=== PATIENT | female | born 1990 | race Two or more races ===

== ENCOUNTER 2018-05-14 07:13 | Emergency (ER) | payer MEDICAID ==
[~2018-05-14] VITALS: Ht 152.4 cm; Wt 70.3 kg
[2018-05-14] MEDS ORDERED: insulin NPH (07:30)
[2018-05-14] MEDS ORDERED: HUMULIN R100 UNIT/1 SUBQ (07:30)
[2018-05-14 08:27] VITALS: BP 115/85
[2018-05-14 08:45] LABS: ANION GAP 8 mmol/L (5-15); BLOOD UREA NITROGEN 15 mg/dL (7-18); CALCIUM 8.7 MG/DL (8.5-10.1); CARBON DIOXIDE 28 MMOL/L (21-32); CHLORIDE 102 MMOL/L (98-107); CREATININE 0.7 MG/DL (0.55-1.30); POTASSIUM 3.2 MMOL/L (3.5-5.1); SODIUM 138 MMOL/L (136-145)
[2018-05-14 08:48] LABS: BASOPHILS % (AUTO) 1.2 % (0.0-2.0); EOSINOPHILS % (AUTO) 1.9 % (0.0-3.0); HEMATOCRIT 47.3 % (37.0-47.0); HEMOGLOBIN 15.7 G/DL (12.0-16.0); LYMPHOCYTES % (AUTO) 43.3 % (20.0-45.0); MEAN CORPUSCULAR VOLUME 87 FL (80-99); MONOCYTES % (AUTO) 7.3 % (1.0-10.0); NEUTROPHILS % (AUTO) 46.3 % (45.0-75.0); PLATELET COUNT 254 K/UL (150-450); RED BLOOD COUNT 5.45 M/UL (4.20-5.40); RED CELL DISTRIBUTION WIDTH 10.7 % (11.6-14.8); WHITE BLOOD COUNT 5.9 K/UL (4.8-10.8)
[2018-05-14 08:51] LABS: ALANINE AMINOTRANSFERASE 28 U/L (12-78); ALBUMIN 3.3 G/DL (3.4-5.0); ALBUMIN/GLOBULIN RATIO 0.8 (1.0-2.7); ALKALINE PHOSPHATASE 78 U/L (46-116); ASPARTATE AMINO TRANSFERASE 14 U/L (15-37); BILIRUBIN,TOTAL 0.8 MG/DL (0.2-1.0)
--- NOTE | 2018-05-14 09:41 | Emergency Room Report ---
History of Present Illness General Chief Complaint: Abnormal Labs Source: Patient Present Illness HPI 27-year-old female presents ED for evaluation of blurry vision. States she is a diabetic. Accu-Chek 250s. States she is not very compliant with her medications. States that she's been having blurry vision in both eyes however right worse than left. States that she had surgery on her left eye in October at [facility]. Patient states she feels blurry vision in her right eye for the last 3 days. Denies any pain. Denies fevers or chills. Denies photophobia. No other aggravating relieving factors. Denies any other associated symptoms Allergies: Coded Allergies: No Known Allergies (Verified Allergy, Mild, 03/29/09) Patient History Past Medical History: DM Past Surgical History: none Pertinent Family History: none Social History: Denies: smoking, alcohol use, drug use Last Menstrual Period: 05/10/18 Now: No Immunizations: UTD Reviewed Nursing Documentation: PMH: Agreed; PSxH: Agreed Nursing Documentation-PMH Past Medical History: No History, Except For Hx Diabetes: Yes Review of Systems All Other Systems: negative except mentioned in HPI Physical Exam Vital Signs Date Time Temp Pulse Resp B/P (MAP) Pulse Ox O2 Delivery O2 Flow Rate FiO2 05/14/18 07:16 98.5 88 18 115/85 95 Room Air 98.4 Sp02 EP Interpretation: reviewed, normal General Appearance: no apparent distress, alert, GCS 15, non-toxic Head: normocephalic Eyes: left eye visual acuity - unable to visualize chart with R eye; bilateral eye normal inspection, bilateral eye PERRL, bilateral eye EOMI ENT: normal ENT inspection Neck: normal inspection Respiratory: normal inspection Cardiovascular #1: normal inspection Gastrointestinal: normal inspection Rectal: deferred Genitourinary: no CVA tenderness Musculoskeletal: normal inspection Neurologic: alert, oriented x3, responsive, feed weigher III-XII nml as tested, motor strength/tone normal, sensory intact, speech normal Psychiatric: normal inspection Skin: normal inspection Lymphatic: normal inspection Medical Decision Making Diagnostic Impression: Primary Impression: Hyperglycemia Additional Impression: Blurry vision ER Course Hospital Course 27-year-old female presenting to ED with elevated BS. c/o blurry vision Differential diagnoses include: hyperglycemia, dehydration, DKA Clinical course Patient placed on stretcher. On night monitor. After initial history and physical I ordered labs, IV fluids Labs-glucose > 200, no anion gap, bicarbonate normal, electrolytes ok. no leukocytosis. acetone negative I performed bedside ultrasound of the right eye. No obvious evidence of retinal detachment. I discussed these findings with the patient. I attempted to contact patient's final installer inspector Dr. Osborne but unable to reach him. I spoke to Dr Harley crockett; I discussed patient's findings with him and he agreed to see patient in his office next week. I will provide patient with referral i. I feel this is a highly complex case requiring extensive working including EKG/Rhythm strip, Xray/CT/US, Blood/urine lab work, repeat exams while in ED, and administration of strong opiates/narcotics for pain control, admission to hospital or close patient follow up. diagnosis - hyperglycemia, blurry vision Stable and discharged to home. Followup with Optho. Return to ED if symptoms recur or worsen Labs Test 05/14/18 08:15 White Blood Count 5.9 K/UL (4.8-10.8) Red Blood Count 5.45 M/UL (4.20-5.40) Hemoglobin 15.7 G/DL (12.0-16.0) Hematocrit 47.3 % (37.0-47.0) Mean Corpuscular Volume 87 FL (80-99) Mean Corpuscular Hemoglobin 28.9 PG (27.0-31.0) Mean Corpuscular Hemoglobin Concent 33.3 G/DL (32.0-36.0) Red Cell Distribution Width 10.7 % (11.6-14.8) Platelet Count 254 K/UL (150-450) Mean Platelet Volume 7.0 FL (6.5-10.1) Neutrophils (%) (Auto) 46.3 % (45.0-75.0) Lymphocytes (%) (Auto) 43.3 % (20.0-45.0) Monocytes (%) (Auto) 7.3 % (1.0-10.0) Eosinophils (%) (Auto) 1.9 % (0.0-3.0) Basophils (%) (Auto) 1.2 % (0.0-2.0) Sodium Level 138 MMOL/L (136-145) Potassium Level 3.2 MMOL/L (3.5-5.1) Chloride Level 102 MMOL/L (98-107) Carbon Dioxide Level 28 MMOL/L (21-32) Anion Gap 8 mmol/L (5-15) Blood Urea Nitrogen 15 mg/dL (7-18) Creatinine 0.7 MG/DL (0.55-1.30) Estimat Glomerular Filtration Rate > 60 mL/min (>60) Glucose Level 209 MG/DL (74-106) Calcium Level 8.7 MG/DL (8.5-10.1) Total Bilirubin 0.8 MG/DL (0.2-1.0) Aspartate Amino Transf (AST/SGOT) 14 U/L (15-37) Alanine Aminotransferase (ALT/SGPT) 28 U/L (12-78) Alkaline Phosphatase 78 U/L (46-116) Total Protein 7.6 G/DL (6.4-8.2) Albumin 3.3 G/DL (3.4-5.0) Globulin 4.3 g/dL Albumin/Globulin Ratio 0.8 (1.0-2.7) Acetone Level Negative (NEGATIVE) Last Vital Signs Date Time Temp Pulse Resp B/P (MAP) Pulse Ox O2 Delivery O2 Flow Rate FiO2 05/14/18 08:27 98.4 78 18 115/85 95 Room Air 98.4 Status: improved Disposition: HOME, SELF-CARE Condition: Stable Referrals: [facility],REFERRING (PCP) Jeffery Sarmiento MD May 14, 2018 09:41
[2018-05-14 10:11] VITALS: BP 115/85
== END 2018-05-14 10:13 | disposition home or self-care (01) ==
LOC: EMR 08:02
DX: E11.65 Type 2 diabetes mellitus with hyperglycemia (principal); H53.8 Other visual disturbances
CPT/HCPCS: 36415; 80053; 82009; 82962; 85025; 96360; 99283

== ENCOUNTER 2019-05-30 07:56 | Emergency (ER) | payer MEDICAID, OTHER ==
[~2019-05-30] VITALS: Ht 152.4 cm; Wt 70.3 kg
[~2019-05-30 07:56] MED LIST: HUMULIN R100 UNIT/1 SUBQ; insulin NPH
[2019-05-30 07:57] VITALS: BP 126/80
--- NOTE | 2019-05-30 08:07 | NUR ---
ED Nurse Note: PT WALKED IN DUE TO NAUSEA AND VOMITING WITH HEADACHE STARTED AROUND 0500 THIS MORNING. DENIES DIARRHEA. LMP THIS MONTH. AAO X4, AMBULATORY WITH NON LABORED BREATHING.
[2019-05-30] MEDS ORDERED: Dexamethasone 4mg/ml vial IVP ONE (08:15)
[2019-05-30] MEDS ORDERED: DiphenhydrAMINE 50mg/ml Inj IVP ONE (08:15)
--- NOTE | 2019-05-30 08:16 | Emergency Room Report ---
History of Present Illness General Chief Complaint: Headache Source: Patient Present Illness HPI 28-year-old female possible history of diabetes, history of retinal surgery, presents with left throbbing-like headache that started at 5 AM, she states it is aggravated with light, alleviated by avoiding the light, not worse in the recumbent position, not sudden onset, it was gradual, she endorses some nausea, denies any photophobia, no neck stiffness, no fever no chills, no cough, patient presents for evaluation. Allergies: Coded Allergies: No Known Allergies (Verified Allergy, Mild, 03/29/09) Patient History Past Medical History: see triage record Last Menstrual Period: 05/2019 Now: No Reviewed Nursing Documentation: PMH: Agreed; PSxH: Agreed Nursing Documentation-PMH Past Medical History: No History, Except For Hx Diabetes: Yes - Type 2 Review of Systems Constitutional: Denies: chills, fever Eye: Denies: blurred vision, double vision ENT: Denies: throat pain, nasal discharge Respiratory: Denies: cough, shortness of breath Cardiovascular: Denies: chest pain, palpitations Gastrointestinal: Reports: nausea, vomiting; Denies: abdominal pain, diarrhea Genitourinary: Denies: dysuria, pain Musculoskeletal: Denies: back pain, muscle pain Skin: Denies: rash, lesions Neurological: Reports: headache; Denies: focal weakness Hematologic/Lymphatic: Denies: easy bleeding, easy bruising All Other Systems: negative except mentioned in HPI Physical Exam Vital Signs Date Time Temp Pulse Resp B/P (MAP) Pulse Ox O2 Delivery O2 Flow Rate FiO2 05/30/19 07:57 97.5 77 20 126/80 97 Room Air Sp02 EP Interpretation: reviewed, normal General Appearance: well appearing, no apparent distress, alert Head: normocephalic, atraumatic Eyes: bilateral eye PERRL, bilateral eye EOMI ENT: uvula midline, moist mucus membranes Neck: supple, thyroid normal, supple/symm/no masses Respiratory: lungs clear, no respiratory distress, no retraction, no accessory muscle use Cardiovascular #1: normal peripheral pulses, regular rate, rhythm, no edema, no gallop, no murmur Gastrointestinal: non tender, soft, no guarding, no rebound Musculoskeletal: normal inspection Neurologic: alert, oriented x3, inspector tester sorter III-XII nml as tested, motor strength/tone normal, sensory intact, normal gait, speech normal, other - [id number] testing normal, no pronator drift, gait intact, 5 out of 5 strength upper and lower extremities, Romberg negative Psychiatric: mood/affect normal Skin: no rash, warm/dry Medical Decision Making Diagnostic Impression: Primary Impression: Headache ER Course Based on the patient's history and physical there is very low clinical suspicion for significant intracranial pathology. There are no red flags of MATHEW, not sudden in onset, not maximal in onset, no acute neurological findings, no fever with head stiffness, not worse in recumbent position. History of headaches yes Low suspicion for subarachnoid hemorrhage, encephalitis, meningitis. Patient given headache cocktail, feels better evaluation 9:05 AM headache resolving She did not have urinary symptoms, will provide a prescription for Keflex, return precautions were discussed, patient counseled to only take Keflex if she starts having symptoms Lab Results Impression Blood cell count slightly elevated, may be a stress reaction to the headache, there is some leukocyte esterase, urine contaminated with sq No evidence of DKA Rhythm Strip Diag. Results Rhythm Strip Time: 08:45 EP Interpretation: yes Rate: 88 Rhythm: NSR, no PVC's, no ectopy Last Vital Signs Date Time Temp Pulse Resp B/P (MAP) Pulse Ox O2 Delivery O2 Flow Rate FiO2 05/30/19 07:57 97.5 77 20 126/80 (95) 97 Room Air Disposition: HOME, SELF-CARE Condition: Improved Scripts Cephalexin* (CEPHALEXIN*) 500 Mg Tablet 500 MG ORAL EVERY 6 HOURS, #20 CAP Prov: Pablo Padilla M.D. 05/30/19 Riboflavin (RIBOFLAVIN) 100 Mg Tablet 400 MG PO DAILY, #30 TAB Prov: Pablo Padilla M.D. 05/30/19 Referrals: [facility] Patient Instructions: General Headache Without Cause, Migraine Headache Additional Instructions: The patient was provided with discharge instructions, notified to follow-up with a primary care doctor and or specialist in the next 24-48 hours, and to return to the ED if they have worsening of their symptoms. Please note that this report is being documented using BrightRollON technology. This can lead to erroneous entry secondary to incorrect interpretation by the dictating instrument. Please follow-up with a neurologist for your headaches, return if you have worsening of your symptoms Pablo Padilla M.D. May 30, 2019 08:16
[2019-05-30] MEDS ORDERED: RIBOFLAVIN100 MG PO (08:22)
--- NOTE | 2019-05-30 08:48 | NUR ---
ED Nurse Note: COLLECTED BLOOD/URINE THEN SENT.
[2019-05-30 08:53] LABS: BASOPHILS % (AUTO) 0.8 % (0.0-2.0); EOSINOPHILS % (AUTO) 0.6 % (0.0-3.0); HEMATOCRIT 41.4 % (37.0-47.0); HEMOGLOBIN 14.1 G/DL (12.0-16.0); LYMPHOCYTES % (AUTO) 21.6 % (20.0-45.0); MEAN CORPUSCULAR VOLUME 87 FL (80-99); MONOCYTES % (AUTO) 5.6 % (1.0-10.0); NEUTROPHILS % (AUTO) 71.5 % (45.0-75.0); PLATELET COUNT 254 K/UL (150-450); RED BLOOD COUNT 4.76 M/UL (4.20-5.40); RED CELL DISTRIBUTION WIDTH 10.9 % (11.6-14.8); WHITE BLOOD COUNT 11.4 K/UL (4.8-10.8)
[2019-05-30 09:01] LABS: APPEARANCE,URINE CLEAR; BILIRUBIN, URINE NEGATIVE (NEGATIVE); COLOR,URINE PALE YELLOW; GLUCOSE, URINE (UA) 1+ (NEGATIVE); KETONES,URINE NEGATIVE (NEGATIVE); LEUKOCYTE ESTERASE ,URINE 1+ (NEGATIVE); NITRITE,URINE NEGATIVE (NEGATIVE); PH,URINE 5 (4.5-8.0); PROTEIN,URINE 3+ (NEGATIVE); UROBILINOGEN,URINE NORMAL MG/DL (0.0-1.0)
[2019-05-30 09:19] LABS: ANION GAP 8 mmol/L (5-15); BLOOD UREA NITROGEN 14 mg/dL (7-18); CARBON DIOXIDE 28 MMOL/L (21-32); CHLORIDE 104 MMOL/L (98-107); CREATININE 0.6 MG/DL (0.55-1.30); POTASSIUM 3.4 MMOL/L (3.5-5.1); SODIUM 140 MMOL/L (136-145)
[2019-05-30 09:23] LABS: ALANINE AMINOTRANSFERASE 22 U/L (12-78); ALBUMIN 3.3 G/DL (3.4-5.0); ALBUMIN/GLOBULIN RATIO 0.8 (1.0-2.7); ALKALINE PHOSPHATASE 77 U/L (46-116); ASPARTATE AMINO TRANSFERASE 14 U/L (15-37); BILIRUBIN,TOTAL 0.5 MG/DL (0.2-1.0)
[2019-05-30] MEDS ORDERED: CEPHALEXIN500 M1 ORAL (09:31)
[2019-05-30 09:37] VITALS: BP 124/76
[2019-05-30 09:38] VITALS: BP 124/76
--- NOTE | 2019-05-30 09:38 | NUR ---
ER DISCHARGE NOTE: Patient is cleared to be discharged per ERMD, pt is aox4, on room air, with stable vital signs. pt was given dc and prescription instructions, pt was able to verbalize understanding, pt id band and iv site removed without complications. pt is able to ambulate with steady gait. pt took all belongings.
== END 2019-05-30 09:38 | disposition home or self-care (01) ==
LOC: EMR 08:17
DX: R51 Headache (principal); E11.9 Type 2 diabetes mellitus without complications
CPT/HCPCS: 36415; 80053; 81003; 81025; 82009; 83690; 85025; 96361; 96365; 96375; 99284; J0780; J1100; J1200

== ENCOUNTER 2019-07-16 13:08 | Emergency (ER) | payer OTHER ==
[~2019-07-16] VITALS: Ht 154.9 cm; Wt 72.6 kg
[~2019-07-16 13:08] MED LIST changes: +CEPHALEXIN500 M1 ORAL; +RIBOFLAVIN100 MG PO
[2019-07-16 13:32] VITALS: BP 138/64
--- NOTE | 2019-07-16 13:32 | NUR ---
ED Nurse Note: Patient walked in c/o uppper back skin rash/abscess x 4 days. Pt rates pain at 7/10. Temp 97.3 F in the ER. Pt is A&O x4, V/S stable with no s/s of acute distress noted at this time. PA at bedside evaluating the pt.
--- NOTE | 2019-07-16 14:16 | Emergency Room Report ---
History of Present Illness General Chief Complaint: Skin Rash/Abscess Source: Patient Present Illness HPI 28-year-old female presents to the emergency department complaining of 7 out of 10 severity pain, tenderness, erythema and swelling to the upper back progressive x3 days. Patient denies fevers or chills she reports history of diabetes states that her sugars and always under control. Patient denies polyuria or polydipsia. Patient states she is up-to-date with her vaccination she denies recent travel or ill contacts. Patient reports in the past she had multiple abscesses in the groin area. Allergies: Coded Allergies: No Known Allergies (Verified Allergy, Mild, 03/29/09) Patient History Past Medical History: see triage record, DM Past Surgical History: none Pertinent Family History: none Last Menstrual Period: Now: Yes - Unknown : 1 Para: 0 Reviewed Nursing Documentation: PMH: Agreed; PSxH: Agreed Nursing Documentation-PMH Past Medical History: No Stated History Hx Diabetes: Yes - Type 2 Review of Systems All Other Systems: negative except mentioned in HPI Physical Exam Vital Signs Date Time Temp Pulse Resp B/P (MAP) Pulse Ox O2 Delivery O2 Flow Rate FiO2 07/16/19 13:32 97.3 96 18 138/64 96 Room Air Sp02 EP Interpretation: reviewed, normal General Appearance: no apparent distress, alert, GCS 15, non-toxic Head: normocephalic, atraumatic Eyes: bilateral eye normal inspection, bilateral eye PERRL ENT: hearing grossly normal, no angioedema, normal voice Neck: full range of motion Respiratory: chest non-tender, lungs clear, normal breath sounds, no wheezing, speaking full sentences Cardiovascular #1: regular rate, rhythm Musculoskeletal: back normal, gait/station normal, normal range of motion, non- tender Neurologic: alert, oriented x3, responsive, motor strength/tone normal, sensory intact, speech normal, grossly normal Psychiatric: judgement/insight normal Skin: other - ST abscess of the upper back 5cm in diameter. Erythema and warmth , palpable fluctuance. Lymphatic: no adenopathy Procedures Incision and Drainage Incision and Drainage : Consent: Verbal Site: upper back Blade Size: 11 I & D Procedure: betadine prep, sterile drapes applied, sterile dressing applied Wound Location: back Wound's Depth, Shape: linear Wound Length (cm): 2 Wound Explored: contaminated - moderate purulent d/c was expressed Anesthesia: Lidocaine w/ Epi Volume Anesthetic (ccs): 2 Splint Applied?: No Sling Applied?: No Patient Tolerated: Well Complications: None Medical Decision Making PA Attestation Dr. Sarmiento is my supervising Physician whom patient management has been discussed with. Diagnostic Impression: Primary Impression: Abscess ER Course 28-year-old female presents to the emergency department complaining of 7 out of 10 severity pain, tenderness, erythema and swelling to the upper back progressive x3 days. Patient denies fevers or chills she reports history of diabetes states that her sugars and always under control. Patient denies polyuria or polydipsia. Patient states she is up-to-date with her vaccination she denies recent travel or ill contacts. Patient reports in the past she had multiple abscesses in the groin area. Ddx considered but are not limited to cellulitis, abscess, cystic acne, necrotizing fasciitis, insect bite. Vital signs: are WNL, pt. is afebrile H&PE are most consistent with ST abscess of the upper back 5cm in diameter. ORDERS: -Urine Hcg: Negative -UA: glucose and protein, no obvious infection most c/w contamination. ED INTERVENTIONS: -I & D. DISCHARGE: At this time pt. is stable for d/c to home. Will provide printed patient care instructions, and any necessary prescriptions. Care plan and follow up instructions have been discussed with the patient prior to discharge. Labs Test 07/16/19 14:30 Urine Color Pale yellow Urine Appearance Clear Urine pH 5 (4.5-8.0) Urine Specific [place] 1.015 (1.005-1.035) Urine Protein 3+ (NEGATIVE) Urine Glucose (UA) 4+ (NEGATIVE) Urine Ketones 4+ (NEGATIVE) Urine Blood 2+ (NEGATIVE) Urine Nitrite Negative (NEGATIVE) Urine Bilirubin Negative (NEGATIVE) Urine Urobilinogen Normal MG/DL (0.0-1.0) Urine Leukocyte Esterase 1+ (NEGATIVE) Urine RBC 2-4 /HPF (0 - 2) Urine WBC 0-2 /HPF (0 - 2) Urine Squamous Epithelial Cells Few /LPF (NONE/OCC) Urine Bacteria Occasional /HPF (NONE) Urine HCG, Qualitative Negative (NEGATIVE) Last Vital Signs Date Time Temp Pulse Resp B/P (MAP) Pulse Ox O2 Delivery O2 Flow Rate FiO2 07/16/19 13:32 97.3 96 18 138/64 (88) 96 Room Air Disposition: HOME, SELF-CARE Condition: Stable Scripts Acetaminophen* (TYLENOL EXTRA STRENGTH*) 500 Mg Tablet 500 MG ORAL Q6H for pain, #20 TAB 0 Refills Prov: Arpita Glynn 07/16/19 Clindamycin Hcl (CLINDAMYCIN HCL) 300 Mg Capsule 300 MG ORAL FOUR TIMES A DAY for 7 Days, #28 CAP Prov: Arpita Glynn 07/16/19 Patient Instructions: Abscess Additional Instructions: Take medications as directed. Follow up with a Primary Care Provider in 3-5 days for DERMATOLOGY REFERRAL , even if your symptoms have resolved. --Please review list of primary care clinics, if you do not already have a primary care provider Return sooner to ED if new symptoms occur, or current symptoms become worse. - Please note that this Emergency Department Report was dictated using [employer]ot[employer] flatbed driver technology software, occasionally this can lead to erroneous entry secondary to interpretation by the dictation equipment. Arpita Glynn Jul 16, 2019 14:16
[2019-07-16] MEDS ORDERED: TYLENOL EXTRA500 MG ORAL (14:17)
[2019-07-16] MEDS ORDERED: CLINDAMYCIN HC300 MG ORAL (14:17)
[2019-07-16 14:37] LABS: APPEARANCE,URINE CLEAR; BILIRUBIN, URINE NEGATIVE (NEGATIVE); COLOR,URINE PALE YELLOW; GLUCOSE, URINE (UA) 4+ (NEGATIVE); KETONES,URINE 4+ (NEGATIVE); LEUKOCYTE ESTERASE ,URINE 1+ (NEGATIVE); NITRITE,URINE NEGATIVE (NEGATIVE); PH,URINE 5 (4.5-8.0); PROTEIN,URINE 3+ (NEGATIVE); UROBILINOGEN,URINE NORMAL MG/DL (0.0-1.0)
[2019-07-16 15:22] VITALS: BP 125/61
--- NOTE | 2019-07-16 15:22 | NUR ---
ER DISCHARGE NOTE: Patient is cleared to be discharged per ERMD, pt is aox4, on room air, with stable vital signs. pt was given dc and prescription instructions, pt was able to verbalize understanding, pt id band removed. pt is able to ambulate with steady gait. pt took all belongings.
== END 2019-07-16 15:33 | disposition home or self-care (01) ==
LOC: EMR 14:16
DX: L02.212 Cutaneous abscess of back [any part, except buttock and flank] (principal); E11.9 Type 2 diabetes mellitus without complications
CPT/HCPCS: 10060; 81003; 81025; 99283

== ENCOUNTER 2019-07-19 07:21 | Emergency (ER) | payer OTHER ==
[~2019-07-19] VITALS: Ht 152.4 cm; Wt 72.6 kg
[~2019-07-19 07:21] MED LIST changes: +CLINDAMYCIN HC300 MG ORAL; +TYLENOL EXTRA500 MG ORAL
[2019-07-19 07:38] VITALS: BP 124/83
[2019-07-19] MEDS ORDERED: Lidocaine 2% 20mg/ml/EPI 0.01mg/ml 20ml ONE (07:49)
--- NOTE | 2019-07-19 07:50 | Emergency Room Report ---
History of Present Illness General Chief Complaint: Skin Rash/Abscess Source: Patient Present Illness HPI Patient presents for evaluation of her incision site on the upper back Reports that she has been taking Tylenol with minimal relief Patient is also taking antibiotics Denies any fevers or chills denies any chest pain patient was here on Thursday where the area was incised There has been some discharge from the area Denies any other rash denies any other trauma Allergies: Coded Allergies: No Known Allergies (Verified Allergy, Mild, 03/29/09) Patient History Past Medical History: see triage record Pertinent Family History: none Now: No Reviewed Nursing Documentation: PMH: Agreed; PSxH: Agreed Nursing Documentation-PMH Past Medical History: No History, Except For Hx Diabetes: Yes - Type 2 Review of Systems All Other Systems: negative except mentioned in HPI Physical Exam Vital Signs Date Time Temp Pulse Resp B/P (MAP) Pulse Ox O2 Delivery O2 Flow Rate FiO2 07/19/19 07:31 98.6 89 17 124/83 (97) 99 Room Air Sp02 EP Interpretation: reviewed, normal General Appearance: well appearing, no apparent distress Head: normocephalic, atraumatic Eyes: bilateral eye PERRL, bilateral eye EOMI ENT: normal pharynx, no angioedema Neck: supple Respiratory: lungs clear, no respiratory distress Cardiovascular #1: regular rate, rhythm Gastrointestinal: non tender, soft Musculoskeletal: normal inspection Neurologic: alert, oriented x3, responsive Psychiatric: normal inspection Skin: other - Mid upper back area of what appears to be likely an incision site that has scabbed over there is some palpable fluctuance, around the region approximately 3 cm Lymphatic: no adenopathy Procedures Incision and Drainage Incision and Drainage : Consent: Verbal Site: Upper back Blade Size: 11 I & D Procedure: betadine prep, sterile drapes applied, sterile dressing applied, gauze wick placed Wound Location: back Wound's Depth, Shape: into muscle Wound Length (cm): 0 Wound Explored: contaminated Irrigated w/ Saline (ccs): 200 Anesthesia: Lidocaine w/ Epi Volume Anesthetic (ccs): 6 Patient Tolerated: Well Complications: None Progress Patient's initial site of incision appears to have scabbed over, this area was opened, and area just lateral to this was also incised given large pocket of pus After further spread with utensils, several pockets of pus were opened with copious discharge Area was packed in both regions and area dressed appropriately Medical Decision Making Diagnostic Impression: Primary Impression: Abscess Additional Impression: Abscess after procedure ER Course It appears the patient's initial site has scabbed over and closed We introduced a new incisional site, during this with washout the scab from the initial site also opens and therefore both areas are packed Patient is on oral antibiotics Further pain medication was provided and patient requires close follow-up with her primary physician which she has next week with possible further specialty work-up as needed Last Vital Signs Date Time Temp Pulse Resp B/P (MAP) Pulse Ox O2 Delivery O2 Flow Rate FiO2 07/19/19 07:38 98.6 80 17 124/83 99 Room Air Status: improved Disposition: HOME, SELF-CARE Condition: Improved Referrals: NON PHYSICIAN (PCP) Additional Instructions: Patient is provided with the discharge instructions notified to follow up with primary doctor in the next 2-3 days otherwise return to the er with any worsening symptoms. Please note that this report is being documented using DRAGON technology. This can lead to erroneous entry secondary to incorrect interpretation by the dictating instrument. Camilo Ritter DO Jul 19, 2019 07:50
[2019-07-19] MEDS ORDERED: HYDROcodone/Acetamin 10/325 tab ORAL ONE (08:00)
[2019-07-19] MEDS ORDERED: Lidocaine 1% 10mg/ml/EPI 0.01mg/ml 20ml INJ ONE (08:00)
[2019-07-19] MEDS ORDERED: Bacitracin Oint 15gm Tube TOPIC ONE (08:27)
[2019-07-19] MEDS ORDERED: NORCO 5-325 TA1 EACH ORAL (08:27)
[2019-07-19 08:50] VITALS: BP 118/74
[2019-07-19] MEDS ORDERED: Pyridoxine 50mg tab ORAL ONE (09:00)
== END 2019-07-19 08:50 | disposition home or self-care (01) ==
LOC: EMR 07:34
DX: L02.212 Cutaneous abscess of back [any part, except buttock and flank] (principal); E11.9 Type 2 diabetes mellitus without complications
CPT/HCPCS: 10060; 99283; Z7502